=== PATIENT | male | born 1955 | race Two or more races ===

== ENCOUNTER 2019-07-08 09:25 | Day surgery (SDC) | payer OTHER ==
[~2019-07-08 09:25] MED LIST: COZAAR50 MG PO; SYNTHROID150 MCG PO
== END 2019-07-08 12:15 | disposition home or self-care (01) ==
LOC: AMB-ENDOS 09:25
DX: K62.1 Rectal polyp (principal)

== ENCOUNTER 2019-07-10 05:00 | Day surgery (SDC) | payer OTHER ==
[2019-07-10] MEDS ORDERED: PERCOCET 5-3251 EACH PO (08:17)
[2019-07-10] MEDS ORDERED: RECTICARE30 GM TOP (08:18)
== END 2019-07-10 11:35 | disposition home or self-care (01) ==
LOC: CIR.AMB 05:00
DX: D12.8 Benign neoplasm of rectum (principal)